=== PATIENT | female | born 1980 ===

== ENCOUNTER 2025-06-04 15:47 | Outpatient (AMB) | payer BC, SELFPAY | END 2025-06-05 13:30 | disposition home or self-care (01) | LOC: HO.HMGAL 15:47 | PROVIDERS: Visit Provider Registered Nurse Emergency | DX: J30.89 Other allergic rhinitis (principal) | CPT/HCPCS: 95117; 95165 ==

== ENCOUNTER 2025-06-27 15:24 | Outpatient (AMB) | payer BC, SELFPAY | END 2025-06-27 15:36 | disposition home or self-care (01) | LOC: HO.HMGAL 15:24 | PROVIDERS: Visit Provider Registered Nurse Emergency | DX: J30.89 Other allergic rhinitis (principal) | CPT/HCPCS: 95117; 95165 ==

== ENCOUNTER 2025-07-16 15:42 | Outpatient (AMB) | payer BC, SELFPAY | END 2025-07-16 15:42 | disposition home or self-care (01) | LOC: HO.HMGAL 15:42 | PROVIDERS: Visit Provider Registered Nurse Emergency | DX: J30.89 Other allergic rhinitis (principal) | CPT/HCPCS: 95117; 95165 ==

== ENCOUNTER 2025-08-01 15:44 | Outpatient (AMB) | payer BC, SELFPAY ==
--- OUTSIDE RECORDS SUMMARY | 2025-08-01 21:52 | XMS_ITS | Data Portability ---
Author Organization [place] [facility],, SHANI FARLEY MD Address [address] [address] Care Team Providers Care Poultry Veterinarian Name Role Phone ERICA FRANCOIS Primary Care Provider Assessment No assessment recorded. Plan of Treatment Reminders Order Date Submit Date Provider Last Modified By Organization Details Last Modified Time Details Appointments SPECIAL PROCEDURE 2024 01:00P M Shani Farley MD Not available Not available Not available Lab urinalysi s, dipstick 2024 025 [email or web address] 1 In-Office Order, Internal Use Only DO Not Attach Compendium DO Not Attach Compendium, Do Not Delete/merge, 07/05/2025 15:01:26 culture, urine 2024 025 [place] [place], [address] [place], [address], 07/07/2025 10:05:51 wet mount, vaginal 2024 025 [email or web address] 1 In-Office Order, Internal Use Only DO Not Attach Compendium DO Not Attach Compendium, Do Not Delete/merge, [id number] 07/05/2025 15:01:26 test, urine 2024 025 [email or web address] 1 In-Office Order, Internal Use Only DO Not Attach Compendium DO Not Attach Compendium, Do Not Delete/merge, 07/05/2025 15:01:26 urinalysi s, dipstick 2024 025 [email or web address] 1 In-Office Order, Internal Use Only DO Not Attach Compendium DO Not Attach Compendium, Do Not Delete/merge, [id number] 05/03/2025 13:23:35 culture, urine 2024 025 [facility], [address] [place], [address], 05/05/2025 10:05:43 test, urine 2024 025 [email or web address] 1 In-Office Order, Internal Use Only DO Not Attach Compendium DO Not Attach Compendium, Do Not Delete/merge, [id number] 05/03/2025 13:23:34 wet mount, vaginal 2024 025 [email or web address] 1 In-Office Order, Internal Use Only DO Not Attach Compendium DO Not Attach Compendium, Do Not Delete/merge, [id number] 05/03/2025 13:23:34 test, urine 2024 025 [email or web address] 1 In-Office Order, Internal Use Only DO Not Attach Compendium DO Not Attach Compendium, Do Not Delete/merge, [id number] 11/14/2024 15:35:05 cytology report, thin prep, smear or scraping, cervical or vaginal 2024 025 [facility]), Patient Can Go To The Location Of Their Choice, [id number] 10/19/2024 10:18:33 Referral None recorded. Procedures None recorded. Surgeries None recorded. Imaging US, pelvis, transabdo joseph + transvagi nal - postmenop ausal bleeding 2024 025 [facility], [address], [address], [place], [address], 07/06/2025 08:33:36 US, breast, bilateral , complete 2024 025 [facility], [address], [address], [place], [address], 02/07/2025 11:40:38 US, pelvis, transabdo joseph + transvagi nal - RLQ pain similar to prior ovarian cyst, for 3 weeks, negative test 2024 025 [facility] Orders, [address], [address], [place], [address], 11/25/2024 09:54:25 US, breast, bilateral , complete 2024 025 [facility] Orders, [address], [address], [place], [address], 05/10/2025 15:39:12 MAMMO, screening , digital, bilateral - Breast Aspiratio n and/or Biopsy if needed 2024 025 [facility] Orders, [address], [address], [place], [address], 10/16/2024 15:57:17 Medication Orders fluconazo le 150 mg tablet 2024 025 [facility]acy #[id number], [address] [place] [address], [address], 07/13/2025 05:01:54 nitrofura ntoin monohydra te/macroc rystals 100 mg capsule 2024 025 [facility] #[id number], [address] [place] [address], [id number], 05/18/2025 05:01:02 fluconazo le 150 mg tablet 2024 025 [facility] #[id number], [address] [place] [address], [id number], 07/13/2025 05:01:54 Radha 0.35 mg tablet 2024 025 [facility] #[id number], [address] [place] [address], [id number], 10/12/2024 15:36:16 Lo Loestrin Fe 1 mg-10 mcg (24)/10 mcg (2) tablet 2023 024 [email or web address]/Pharmacy #[id number], [address] [facility], [place], [address], 10/12/2024 15:16:17 Patient TargetsNo targets recorded. Patient Instructions Encounter Date Encounter Id Patient Instructions Last Modified By Organization Details Last Modified Time 05/30/2024 [id number] headache: care instructions Not available 05/30/2024 12:44:21 She is here because she had no menses from 10/02 until 02/01, then has had a menses every two to three weeks since then, has been having mood instability, increased anxiety, hot flashes and night sweats, and difficulty remembering things. She is age 43 but wonders if she is going though menopause. She has been using a progestin only pill since 09/02, because she was getting headaches on the 20 mcg pill she had francisco on. The headaches are nearly resolved off the 20 mcg pill, but these mood swings are intolerable, I'm afraid I will lose my job, and my said I need to do something about these moods. The issues of perimenopause were discussed at length. She is aware that her menses will become erratic, and she may miss menses more frequently. We discussed the possible symptoms of hot flashes, night sweats, insomnia, irritability, short term memory issues, and the possibility of developing anxiety or panic attacks. We reviewed why this occurs, on a physiologic basis, as her estrogen levels diminish. We discussed ways to diminish the symptoms, including avoidance of caffeine and alcohol, cooler temperature rooms, and wearing open and loose weave absorbent clothing, or nothing at all, at night. We touched on the social and life issues that can arise at this time due to the hormonal instability. We discussed ways to manage the symptoms with herbal therapy. The use of black cohash, specifically Remifemin, is discussed, and she is advised that she must take it twice a day for a month prior to trying to asses whether there is any benefit, as it takes a month to begin to notice improvement. We discussed trying the 10 mcg pill to see if her headaches do not recur on this, and see if the med can stabilize her mood instability, she will try this. Call if headaches return. All this started after stopping the 20 mcg pill so she may have bene well into the perimenopause nad not known it as the OCP may have masked the symptoms. Also she is taking zoloft from her PCP and is advised to call them and ask if they would be fine with her switching to prozac from zoloft, as this may help her hormonal mood instability as well. Face to face discussion for 35 minutes. [email or web address] Not available 05/30/2024 12:43:39 10/12/2024 [id number] learning about healthy weight Not available 10/12/2024 15:36:14 She is here for annual. She was switched to progestin pill last year due to her migraines. Since switching she notes her headaches are less frequent and less intense, she believes the switch made a good improvement. She was told by radiology that her breasts are dense and they recommend a mammogram once a year, and an ultrasound every year, offset by 6 months so she gets one test every 6 months. She had a right ovarian cyst last year but it shrank on repeat sono, and no further testing was necessary. Note from 2022: She is here for an annual however she has a few other concerns. She has had bloating and pelvic pain on and off for several weeks. She is worried she has ovarian cancer. She has Crohn's disease but feels these symptoms are different. She has dense breasts and would like a breast sonogram for screening. She has had worsening migraine headaches for the past few years, her PCP recently called her in Sumatriptan. she is taking a combination OCP. Her menses have bene coming in week 3 of her cycle and lasting a week then she goes into her next pill pack and again gets menses week 3. She appears to be doing well. Ordered breast ultrasound at her request. Monthly self breast exam was taught, and stressed, and is advised to call if she discovers any new mass in the breast. We reviewed the interaction of the OCP with antibiotics. We discussed the need to use a condom during antibiotic use and also for a minimum of three weeks following the use of antibiotics. We discused interactions with some herbal and OTC meds, such as [facility] Possible side effects, and the stated risk of one in 10,000 to develop a blood clot/ DVT/PE were also discussed. Safe sex was stressed. All questions answered, rx to be called in to pharmacy. Not available 10/12/2024 15:37:48 11/14/2024 [id number] She is here because on 10/19/24 she noted the onset of discomfort in her RLQ, like the cyst I had before, she had twinges of pain when she coughed or sneezed. The pain radiated to her low back. IT resolved 3 days ago nad is gone now but she is concerned because it was unusual. She would like a pelvic sonogram as the prior cyst showed up on sonogram. Note from 10/12/24: She is here for annual. She was switched to progestin pill last year due to her migraines. Since switching she notes her headaches are less frequent and less intense, she believes the switch made a good improvement. She was told by radiology that her breasts are dense and they recommend a mammogram once a year, and an ultrasound every year, offset by 6 months so she gets one test every 6 months. She had a right ovarian cyst last year but it shrank on repeat sono, and no further testing was necessary. ___ Ther is no mass on exam but she is guarding. Will chek pelvic sonogram. She is on progestin only pill because of headaches, which improved off the combination pill. We discussed that the combination pill can suppress cysts but if her headaches were worse on it then that could put her at risk for stroke. She understands. Check pelvic sonogram. Also she requests breast ultrasound for dense breasts. This is ordered. Face to face discussion, chart review and coordination of care: 25 minutes Not available 11/14/2024 15:39:31 05/03/2025 [id number] urinary tract infection in women information Not available 05/03/2025 13:23:35 vaginal yeast infection: care instructions Not available 05/03/2025 13:23:34 She is here for a two day history of worsening dysuria, frequency, urgency and vulvar pruritus. The pelvic sono in 12/05 was normal. Sh has vaginal yeast, rx diflucan. She appears ot also have a UTI, but could be contaminant from yeast. Will start macrobid and check urine culture. IF culture no growth can stop the antibiotic in 2 days. All questions answered. Not available 05/03/2025 13:33:23 07/05/2025 [id number] urinary tract infection in women information Not available 07/05/2025 15:01:26 vaginal yeast infection: care instructions Not available 07/05/2025 15:01:25 vaginal bleeding after sex: care instructions Not available 07/05/2025 15:15:44 She is here for a complaint of intermittent bloating, pelvic pain, which are relatively recent, and a history of 2 years of intermittent post coital spotting. She notes that she was switched to a generic med for her gi issues and after this the bloating issues and pain began. She talked to her gi doctor in [place] but was advised to see coloring room worker first as she could have a coloring room worker issue. She had a pelvic sonogram in 11/2024 that was normal, an the endometrial thickness was 1 mm. She has a famil history of ovarian cancer, but her mother is BRCA negative. Urine hcg is negative. Urine dip has blood and WBC but could be from vaginal yeast, check urine culture. Has symptomatic monilia vaginitis, rx diflucan. Abdominal pain, check pelvic sonogram. All qeustions answered. She is advised that in my opinion it is more likely that her bloating is gi in origin as it comes and goes and she should contact her gi doctor again to see if she can go back on the brand name as this did not cause the bloating. Face to face discussion, chart review and coordination of care: 25 minutes Not available 07/05/2025 15:14:27 Reason for Referral None Reported. Results Created Date Observation Date Name Description Value Unit Range Abnormal Flag Note LastModifiedBy Organization Detail LastModifiedTime 10/12/1910/19/2024 IGP, RFX APTIM A HPV ASCU diagnosis: Jose Antonio newton NEGAT HERMINIA FOR INTRA EPITH ELIAL LESVIVIEN N OR KARLY FAYE . THIS SPECI MEN WAS RESCR EENED PART OF OUR QUALI TY CONTR OL PROGR AM. Not Available [facility] ([facility]) [address] [place], [address], 10/19/2024 10:18:33 10/12/19 25 10/19/2024 IGP, RFX APTIM A HPV ASCU specimen adequacy: Jose Antonio newton Satis facto ry for evalu ation . Not Available [facility] ([facility]) [address] [place], [address], 10/19/2024 10:18:33 10/12/19 25 10/19/2024 IGP, RFX APTIM A HPV ASCU clinician provided ICD10: Jose Antonio newton Z01.4 19 Not Available [facility] ([facility]) [address] [place], [address], 10/19/2024 10:18:33 10/12/19 25 10/19/2024 IGP, RFX APTIM A HPV ASCU performed by: Jose Antonio Dunham, Cytot echno logis t (ASCP ) Not Available [facility] ([facility]) [address] [place], [address], 10/19/2024 10:18:33 10/12/19 25 10/19/2024 IGP, RFX APTIM A HPV ASCU QC reviewed by: Jose Antonio slater, Cytot echno logis t (ASCP ) Not Available [facility] ([facility]) [address] [place], [address], 10/19/2024 10:18:33 10/12/19 25 10/19/2024 IGP, RFX APTIM A HPV ASCU . . Not Available [facility] ([facility]) [address] [place], [address], 10/19/2024 10:18:33 10/12/19 25 10/19/2024 IGP, RFX APTIM A HPV ASCU note: Commen t The Pap smear is a scree giorgio test desig jed to aid in the detec tion of chad ligna nt and malig nant condi tions of the uteri ne cervi x. It is not a diagn ostic proce dure and shoul d not be used as the sole means of detec ting cervi yamilet cance r. Both false -posi tive and false -nega tive repor ts do occur . Not Available [facility] ([facility]) [address] [facility], [place], [address], 10/19/2024 10:18:33 10/12/19 25 10/19/2024 IGP, RFX APTIM A HPV ASCU test methodology: TNP The Thin Prep( R) Image r was unabl e to read this speci men. There fore a manua l revie w was perfo rmed. Not Available [facility] ([facility]) [address] [facility], [place], [address], 10/19/2024 10:18:33 10/12/19 25 10/19/2024 IGP, RFX APTIM A HPV ASCU . Commen t The HPV DNA refle x crite raysa were not met with this speci men resul t there fore, no HPV testi ng was perfo rmed. Not Available [facility] ([facility]) [address] [place], [address], 10/19/2024 10:18:33 11/14/19 25 11/14/2024 pregn nigel test, urine HCG negati ve Not Available In-Office Order Internal Use Only DO Not Attach Compendium DO Not Attach Compendium, Do Not Delete/merge, [id number] 11/14/2024 14:52:43 05/03/20 25 05/05/2025 URINE CULTU RE, ROUTI NE urine culture, routine Final report abnormal Not Available [facility] ([facility]) [address] [facility], [place], [address], 05/05/2025 14:05:49 05/03/20 25 05/05/2025 URINE CULTU RE, ROUTI NE result 1 COMMEN T abnormal Beta hemol ytic Strep tococ cus, group B 50,00 0-100 ,000 colon y formi ng units per mL Susce ptibi lity not jeanna lly perfo rmed on this organ ism. Penic illin and ampic illin are drugs of choic e for treat ment of beta- hemol ytic strep tococ yamilet infec tions . Susce ptibi lity testi ng of penic illin s and other beta- lacta m agent s appro elizabeth by the FDA for treat ment of beta- hemol ytic strep tococ yamilet infec tions need not be perfo rmed routi delta becau se nonsu scept ible isola chi are extre ariadna rare in any beta- hemol ytic strep tococ cus and have not been repor maxwell for Strep tococ cus pyoge nathan (grou p A). (CLSI ) Not Available [facility] ([facility]) [address] [facility], [place], [address], 05/05/2025 14:05:49 05/03/2005/03/2025 wet mount , vagin al Clue Cells negati ve Not Available In-Office Order Internal Use Only DO Not Attach Compendium DO Not Attach Compendium, Do Not Delete/merge, [id number] 05/03/2025 13:22:30 05/03/2005/03/2025 wet mount , vagin al Trichomonas negati ve Not Available In-Office Order Internal Use Only DO Not Attach Compendium DO Not Attach Compendium, Do Not Delete/merge, [id number] 05/03/2025 13:22:30 05/03/2005/03/2025 wet mount , vagin al Hyphae positi ve Not Available In-Office Order Internal Use Only DO Not Attach Compendium DO Not Attach Compendium, Do Not Delete/merge, 05/03/2025 13:22:30 05/03/2005/03/2025 wet mount , vagin al atrophic epithelium negati ve Not Available In-Office Order Internal Use Only DO Not Attach Compendium DO Not Attach Compendium, Do Not Delete/merge, 05/03/2025 13:22:30 05/03/2005/03/2025 pregn nigel test, urine HCG negati ve Not Available In-Office Order Internal Use Only DO Not Attach Compendium DO Not Attach Compendium, Do Not Delete/merge, 05/03/2025 13:17:25 05/03/2005/03/2025 urina lysis , dipst ick GLU Negati ve Not Available In-Office Order Internal Use Only DO Not Attach Compendium DO Not Attach Compendium, Do Not Delete/merge, 05/03/2025 13:16:37 05/03/2005/03/2025 urina lysis , dipst ick HIGINIO Negati ve Not Available In-Office Order Internal Use Only DO Not Attach Compendium DO Not Attach Compendium, Do Not Delete/merge, 05/03/2025 13:16:37 05/03/2005/03/2025 urina lysis , dipst ick KET Negati ve Not Available In-Office Order Internal Use Only DO Not Attach Compendium DO Not Attach Compendium, Do Not Delete/merge, 05/03/2025 13:16:37 05/03/2005/03/2025 urina lysis , dipst ick SG 1.010 Not Available In-Office Order Internal Use Only DO Not Attach Compendium DO Not Attach Compendium, Do Not Delete/merge, 05/03/2025 13:16:37 05/03/2005/03/2025 urina lysis , dipst ick BLO Large Not Available In-Office Order Internal Use Only DO Not Attach Compendium DO Not Attach Compendium, Do Not Delete/merge, 05/03/2025 13:16:37 05/03/20 25 05/03/2025 urina lysis , dipst ick pH 6.5 Not Available In-Office Order Internal Use Only DO Not Attach Compendium DO Not Attach Compendium, Do Not Delete/merge, [facility] 05/03/2025 13:16:37 05/03/20 25 05/03/2025 urina lysis , dipst ick PRO 30 Not Available In-Office Order Internal Use Only DO Not Attach Compendium DO Not Attach Compendium, Do Not Delete/merge, [facility] 05/03/2025 13:16:37 05/03/20 25 05/03/2025 urina lysis , dipst ick URO 0.2 E.U. / dl Not Available In-Office Order Internal Use Only DO Not Attach Compendium DO Not Attach Compendium, Do Not Delete/merge, [facility] 05/03/2025 13:16:37 05/03/20 25 05/03/2025 urina lysis , dipst ick NIT negati ve Not Available In-Office Order Internal Use Only DO Not Attach Compendium DO Not Attach Compendium, Do Not Delete/merge, [facility] 05/03/2025 13:16:37 05/03/20 25 05/03/2025 urina lysis , dipst ick FREDERICK Large Not Available In-Office Order Internal Use Only DO Not Attach Compendium DO Not Attach Compendium, Do Not Delete/merge, [facility] 05/03/2025 13:16:37 05/25/20 25 05/26/2025 URINE CULTU REMARGARET NE urine culture, routine Final report abnormal Not Available [facility] ([facility]) [address] [facility], [place], [address], 05/26/2025 18:05:38 05/25/20 25 05/26/2025 URINE CULTU REMARGARET NE result 1 COMMEN T abnormal Beta hemol ytic Strep tococ cus, group B 50,00 0-100 ,000 colon y formi ng units per mL Penic illin and ampic illin are drugs of choi e for treat ment of beta- hemol ytic strep tococ yamilet infec tions . Susce ptibi lity testi ng of penic illin s and other beta- lacta m agent s appro elizabeth by the FDA for treat ment of beta- hemol ytic strep tococ yamilet infec tions need not be perfo rmed margaret hebertau se nonsu scept ible isola chi are extre ariadna rare in any beta- hemol ytic strep tococ cus and have not been repor maxwell for Strep tococ cus pyoge nathan (grou p A). (CLSI ) Not Available [facility] ([facility]) [address] [facility], [place], [address], 05/26/2025 18:05:38 07/05/2007/07/2025 URINE CULTU REMARGARET NE urine culture, routine Final report Not Available [facility] ([facility]) [address] [facility], [place], [address], 07/07/2025 10:05:51 07/05/2007/07/2025 URINE CULTU REMARGARET result 1 No growth Not Available [facility] ([facility]) [address] [facility], [place], [address], 07/07/2025 10:05:51 07/05/2007/05/2025 wet mount , vagin al Clue Cells negati ve Not Available In-Office Order Internal Use Only DO Not Attach Compendium DO Not Attach Compendium, Do Not Delete/merge, 07/05/2025 15:00:34 07/05/2007/05/2025 wet mount , vagin al Trichomonas negati ve Not Available In-Office Order Internal Use Only DO Not Attach Compendium DO Not Attach Compendium, Do Not Delete/merge, 07/05/2025 15:00:34 07/05/2007/05/2025 wet mount , vagin al Hyphae positi ve Not Available In-Office Order Internal Use Only DO Not Attach Compendium DO Not Attach Compendium, Do Not Delete/merge, 07/05/2025 15:00:34 07/05/2007/05/2025 wet mount , vagin al atrophic epithelium negati ve Not Available In-Office Order Internal Use Only DO Not Attach Compendium DO Not Attach Compendium, Do Not Delete/merge, 07/05/2025 15:00:34 07/05/2007/05/2025 pregn nigel test, urine HCG negati ve Not Available In-Office Order Internal Use Only DO Not Attach Compendium DO Not Attach Compendium, Do Not Delete/merge, 07/05/2025 14:58:13 07/05/2007/05/2025 urina lysis , dipst ick GLU Negati ve Not Available In-Office Order Internal Use Only DO Not Attach Compendium DO Not Attach Compendium, Do Not Delete/merge, 07/05/2025 14:55:04 07/05/2007/05/2025 urina lysis , dipst ick HIGINIO Negati ve Not Available In-Office Order Internal Use Only DO Not Attach Compendium DO Not Attach Compendium, Do Not Delete/merge, 07/05/2025 14:55:04 07/05/2007/05/2025 urina lysis , dipst ick KET Negati ve Not Available In-Office Order Internal Use Only DO Not Attach Compendium DO Not Attach Compendium, Do Not Delete/merge, 07/05/2025 14:55:04 07/05/2007/05/2025 urina lysis , dipst ick SG 1.005 Not Available In-Office Order Internal Use Only DO Not Attach Compendium DO Not Attach Compendium, Do Not Delete/merge, 07/05/2025 14:55:04 07/05/2007/05/2025 urina lysis , dipst ick BLO Hemoly zed : Trace Not Available In-Office Order Internal Use Only DO Not Attach Compendium DO Not Attach Compendium, Do Not Delete/merge, 07/05/2025 14:55:04 07/05/2007/05/2025 urina lysis , dipst ick pH 6.0 Not Available In-Office Order Internal Use Only DO Not Attach Compendium DO Not Attach Compendium, Do Not Delete/merge, 2025 14:55:04 07/05/20 25 07/05/2025 urina lysis , dipst ick PRO Negati ve Not Available In-Office Order Internal Use Only DO Not Attach Compendium DO Not Attach Compendium, Do Not Delete/merge, [facility] 07/05/2025 14:55:04 07/05/20 25 07/05/2025 urina lysis , dipst ick URO 0.2 E.U. / dl Not Available In-Office Order Internal Use Only DO Not Attach Compendium DO Not Attach Compendium, Do Not Delete/merge, [id number] 07/05/2025 14:55:04 07/05/2007/05/2025 urina lysis , dipst ick NIT negati ve Not Available In-Office Order Internal Use Only DO Not Attach Compendium DO Not Attach Compendium, Do Not Delete/merge, [facility] 07/05/2025 14:55:04 07/05/2007/05/2025 urina lysis , dipst ick FREDERICK Large Not Available In-Office Order Internal Use Only DO Not Attach Compendium DO Not Attach Compendium, Do Not Delete/merge, [facility] 07/05/2025 14:55:04 08/13/20 24 08/11/2024 MAMMO , scree giorgio, digit al, bilat eral No observ ation record ed. [facility] [address], [place], [address], 08/14/2024 07:09:21 11/25/19 25 11/24/2024 US, pelvi s, trans abdom inal + trans vagin al No observ ation record ed. [facility] (Imaging) [address], [place], [address], 11/27/2024 16:54:58 05/10/20 25 05/10/2025 US, breas t, bilat eral, compl ete No observ ation record ed. [facility] [address] [address] [address], [place], [address], 05/11/2025 07:39:26 07/10/20 25 07/09/2025 US, pelvi s, trans abdom inal + trans vagin al No observ ation record ed. [email or web address] [facility] [address], [place], [address], 07/30/2025 15:23:14 Result Notes None recorded. Problems Name Problem SNOMED Code Status Onset Date Resolution Date Notes Provider Name and Address Organization Details Recorded Time Ulcerative colitis 49179514 Active 2017 ARGELIA Villar in [facility], 8 15:04:17 Celiac disease 810707377 Active 2017 ARGELIA Villar in [facility], 8 15:12:57 Endometrios is of uterus 84144280 Active 2017 [place], [address], [place] [facility], 8 16:01:35 Dyspareunia 85007400 Active 2017 MD Thee Dyson SU ITAditi Ferraro, [place], [address], [place] - [facility], 8 16:01:44 Premenstrua l dysphoric disorder 261073 Active 2018 improved with the OCP MD Thee Dyson SU ITAditi Ferraro, [place], [address], [place] [facility], 9 15:48:40 Family history of malignant neoplasm of ovary 436603915 Active 2023 MD Thee Dyson [address], [place], [address], [place] [facility], 4 11:46:26 Family history of malignant neoplasm of breast in first degree relative 593863283 Active 2023 MD Thee Dyson [address], [place], [address], [place] [facility], 4 11:46:40 Extremely dense breast composition 073337449 Active 2024 Shani Farley MD [address], [place], [address], [place] [facility], 5 15:35:54 Problem Notes None recorded. Procedures Surgical History Date Name Laterality Status Provider Name and Address Organization Details Recorded Time 4 Most Recent Mammogram completed Kassy Newman in [facility], 09/26/2024 10:39:28 2 Colposcopy completed Shani Farley MD [address], [place], [address], [place] [facility], 05/11/2022 10:35:45 2 Colposcopy completed Shani Farley MD [address], [place], [address], [place] - [facility], 01/22/2022 14:57:37 9 Hernia repair w/mesh completed Shani Farley MD [address], [place], [address], [place] - [facility], 03/13/2020 10:18:36 5 Caesarean Section completed Letitia Newman in [facility], 02/10/2018 15:18:48 Other completed Letitia Newman in [facility], 02/10/2018 15:20:47 Imaging Results None recorded. Procedure Notes None recorded. Medical Equipment None Reported. Allergies Allergen ID Allergen Name Allergen Category Reaction Reaction Severity Criticality Documentation Date Start Date Code Code System Note Provider Name and Address Organization Details Recorded Time Augmentin medicatio n rash Not available Not available 02/10/2018 95602 2 RxNorm ARGELIA Villar in [facility], 8 15:06:01 clindamyc in Not available rash Not available Not available 02/10/2018 2582 RxNorm Letitia Winters monie [place] - [facility], 8 15:06:20 [address]54 Remicade medicatio n anaphylax is severe high 08/20/2022 07591 0 RxNorm Tigist Goss ARGELIA lomax - [facility], 2 15:15:47 Medications Name Sig Start Date Stop Date Status Note LastModified by Organization Details LastModified Time prednisone 10 mg tablet TAKE 4 TABLETS BY MOUTH EVERY DAY 05/11 completed Not Available Not Available Not Available trazodone 50 mg tablet 08/19 completed Not Available Not Available Not Available azithromyc in 250 mg tablet TAKE 2 TABLETS BY MOUTH TODAY, THEN TAKE 1 TABLET DAILY FOR 4 DAYS DIRECTED STARTING TODAY 10/12 completed Not Available Not Available Not Available fluconazol e 150 mg tablet Take 1 tablet every day by oral route for 1 day. 07/13 completed Not Available Not Available Not Available ondansetro n HCl 4 mg tablet TAKE 1 TABLET BY MOUTH EVERY 8 HOURS FOR 7 DAYS 09/09 completed Not Available Not Available Not Available sertraline 100 mg tablet TAKE 1 & 1/2 TABLETS BY MOUTH DAILY active Not Available Not Available No t Available prednisone 5 mg tablet TAKE 1 TABLET BY MOUTH ONCE A DAY. TITRATE DIRECTED . 05/11 completed Not Available Not Available Not Available sumatripta n 50 mg tablet TAKE 1 TABLET BY MOUTH ONVR A DAY. MAY REPEAT DOSE IN 2 HOURS IF NEEDED active Not Available Not Available No t Available promethazi ne 6.25 mg-codeine 10 mg/5 mL syrup TAKE 5 MLS BY MOUTH AT BEDTIME NEEDED FOR COUGH FOR 7 DAYS. 03/13 completed Not Available Not Available Not Available Remicade 100 mg intravenou s solution Inject by intraven ous route. 08/20 completed Not Available Not Available Not Available vancomycin 125 mg capsule TAKE ONE CAPSULE BY MOUTH 4 TIMES A DAY 02/16 completed Not Available Not Available Not Available benzonatat e 100 mg capsule TAKE 1 CAPSULE BY MOUTH THREE TIMES A DAY FOR 7 DAYS NEEDED FOR COUGH 08/20 /2024 completed Not Available Not Available Not Available prednisone 50 mg tablet TAKE 1 TABLET BY MOUTH DAILY FOR 4 DAYS. TAKE WITH FOOD OR MILK. 09/09 completed as needed Not Available Not Available Not Available polymyxin B sulfate 10,000 unit-trime thoprim 1 mg/mL eye drops INSTILL 1 DROP IN LEFT EYE 3 TIMES A DAY FOR 7 DAYS 09/09 completed Not Available Not Available Not Available hydrocorti sone 100 mg/60 mL enema INSERT ONE ENEMA RECTALLY AT BEDTIME 12/09 completed Not Available Not Available Not Available montelukas t 10 mg tablet TAKE 1 TABLET BY MOUTH ONCE DAILY active Not Available Not Available No t Available epinephrin e 0.3 mg/0.3 mL injection, auto-injec tor INJECT 1 PEN INTRAMUS CULARLY ONCE DIRECTED active Not Available Not Available No t Available levofloxac in 750 mg tablet TAKE 1 TABLET BY MOUTH EVERY DAY FOR 7 DAYS 03/13 completed Not Available Not Available Not Available methylpred nisolone 4 mg tablets in a dose pack TAKE DIRECTED 09/09 completed Not Available Not Available Not Available albuterol sulfate HFA 90 mcg/actuat ion aerosol inhaler INHALE 2 PUFFS EVERY 4 HOURS NEEDED FOR COUGH, WHEEZE OR SHORTNES S OF BREATH . 05/30 completed Not Available Not Available Not Available ipratropiu m bromide 42 mcg (0.06 %) nasal spray USE 2 SPRAYS IN NASALLY 3 TIMES A DAY FOR 5 DAYS 03/13 completed Not Available Not Available Not Available norethindr one (contracep tive) 0.35 mg tablet TAKE 1 TABLET BY MOUTH EVERY DAY active Not Available Not Available No t Available fluticason e propionate 50 mcg/actuat ion nasal spray,susp ension USE 1 SPRAY IN EACH NOSTRIL TWICE A DAY active Not Available Not Available No t Available sertraline 50 mg tablet TAKE THREE TABLETS BY MOUTH EVERY DAY 08/19 completed Not Available Not Available Not Available oxycodone 5 mg tablet TAKE 1 TABLET BY MOUTH EVERY 4 HOURS NEEDED FOR PAIN 10/12 completed Not Available Not Available Not Available Bactrim DS 800 mg-160 mg tablet Take 1 tablet every 12 hours by oral route for 5 days. 06/09 completed Not Available Not Available Not Available nitrofuran toin monohydrat e/macrocry stals 100 mg capsule Take 1 capsule every 12 hours by oral route for 7 days. 05/18 completed Not Available Not Available Not Available mesalamine 1,000 mg rectal suppositor y 1 SUPPOSIT ORY RECTALLY ONCE AT NIGHT 09/09 completed Not Available Not Available Not Available Humira active Not Available Not Availa ble Not Available Sronyx 0.1 mg-20 mcg tablet TAKE 1 TABLET BY MOUTH EVERY DAY 05/30 completed Not Available Not Available Not Available Bacitrayci n Plus 500 unit/gram topical ointment APPLY TOPICALL Y TO AFFECTED SKIN 2 TIMES A DAY FOR 7 DAYS active Not Available Not Available No t Available mesalamine 800 mg tablet,del ayed release TAKE TWO TABLETS BY MOUTH THREE TIMES DAILY 12/09 completed Not Available Not Available Not Available Zyrtec 10 mg capsule Take by oral route. active Not Available Not Available No t Available Lo Loestrin Fe 1 mg-10 mcg (24)/10 mcg (2) tablet TAKE 1 TABLET BY MOUTH EVERY DAY FOR 84 DAYS 10/12 completed Not Available Not Available Not Available Banophen 50 mg capsule TAKE 1 CAPSULE BY MOUTH EVERY 4 TO 6 HOURS NEEDED FOR ALLERGIC REACTION 09/09 completed Not Available Not Available Not Available Prepopik 10 mg-3.5 gram-12 gram oral powder packet USE DIRECTED 08/15 completed Not Available Not Available Not Available budesonide DR-ER 9 mg tablet,del ayed and extended release TAKE 1 TABLET BY MOUTH EVERY DAY 12/09 completed Not Available Not Available Not Available Delzicol 400 mg capsule (DR tablets inside) TAKE THREE CAPSULES BY MOUTH FOUR TIMES DAILY 08/19 completed Not Available Not Available Not Available riboflavin (vitamin B2) 400 mg tablet TAKE 1 TABLET BY MOUTH EVERY DAY active Not Available Not Available No t Available Clenpiq 10 mg-3.5 gram-12 gram/160 mL oral solution DIRECTED 08/15 completed Not Available Not Available Not Available Flucelvax Quad 5373-8106 (PF) 60 mcg (15 mcg x 4)/0.5 mL IM syringe TO BE ADMINIST ERED BY PHARMACI ST FOR IMMUNIZA TION active Not Available Not Available No t Available Sutab 1.479-0.18 8-0.225 gram tablet DIRECTED BY CLINIC INSTRUCT IONS WITH WATER (12 TABLETS DAY BEFORE APPT, 12 TABLETS DAY OF) 05/03 completed Not Available Not Available Not Available Paxlovid 300 mg (150 mg x 2)-100 mg tablets in a dose pack TAKE 3 TABLETS BY MOUTH TWICE A DAY FOR 5 DAYS DIRECTED ON PACKAGE active Not Available Not Available No t Available Vitals Date Recorded Body height Body mass index (BMI) Body weight Body temperature Heart rate Systolic And Diastolic Provider Name and Address Organization Details Last Updated DateTime 149.86 cm 25.7 kg/m2 99718.2 3 g 97.4 [degF] 69 /min 128/80 mm[Hg] Kassy Newman in [facility], 15:14:48 Date Recorded Body height Body mass index (BMI) Body weight Heart rate Systolic And Diastolic Provider Name and Address Organization Details Last Updated DateTime 11/14/2024 149.86 cm 26.3 kg/m2 14748.01 g 62 /min 131/74 mm[Hg] Kassy Newman in [facility], 11/14/2024 14:52:12 Date Recorded Body height Body mass index (BMI) Body weight Heart rate Systolic And Diastolic Provider Name and Address Organization Details Last Updated DateTime 05/03/2025 149.86 cm 26.9 kg/m2 69199.79 g 79 /min 118/74 mm[Hg] Kassy Newman in [facility], 05/03/2025 13:04:37 Date Recorded Body height Body mass index (BMI) Body weight Body temperature Heart rate Systolic And Diastolic Provider Name and Address Organization Details Last Updated DateTime 149.86 cm 25.2 kg/m2 04854.0 5 g 97.2 [degF] 79 /min 129/70 mm[Hg] Kassy Newman in [facility], 10:48:26 Date Recorded Body height Body mass index (BMI) Body weight Heart rate Systolic And Diastolic Provider Name and Address Organization Details Last Updated DateTime 07/05/2025 149.86 cm 27.8 kg/m2 89556.59 g 69 /min 146/84 mm[Hg] Kassy Obinna [place] - [facility], 07/05/2025 14:43:15 Social History Question Answer Notes LastModified by Organizat ion Details LastModified Time Tobacco Smoking Status Never Smoker Not Available [facility] 08/13/2020 03:19:43 How Many Years Have You Consumed Alcohol? 20 Information not available 08/19/2021 What Is Your Level Of Caffeine Consumption? Heavy Information not available 08/15/2020 In The 14 Days Before Symptom Onset, Have You Had Close Contact With A Laboratory-confir med COVID-19 While That Case Was Ill? No Information not available 08/19/2021 In The 14 Days Before Symptom Onset, Have You Had Close Contact With A Person Who Is Under Investigation For COVID-19 While That Person Was Ill? No Information not available 08/19/2021 Have You Been To An Area Known To Be High Risk For COVID-19? No Information not available 08/19/2021 What Type Of Diet Are You Following? GLUTENFREE [id number] Information not available 08/13/2020 Which Illicit Or Recreational Drugs Have You Used? None [id number] Information not available 08/13/2020 Do You Reside In Or Have You Traveled To An Area Where Ebola Virus Transmission Is Active? No [id number] Information not available 08/13/2020 Education Post Graduate Information not available 02/10/2018 What Is The Highest Grade Or Level Of School You Have Completed Or The Highest Degree You Have Received? [id number] Information not available 08/19/2021 Who Is Your Employer? [employer] Information not available 05/11/2022 How Many Days In The Past Year Have You Had A Heavy Drinking Consumption (4+ Female, 5+ Male)? 0 Information no t available 02/10/2018 Are There Any Guns Present In Your Home? Yes Information not available 08/19/2021 High Number Of Sexual Partners No Information not available 02/10/2018 To Which Gender Do You Self-identify? Female Information not available 02/10/2018 Marital Status stacey Informmaryo n not available 02/10/2018 What Was The Date Of Your Most Recent Tobacco Screening? 07/05/2025 Information not available 07/05/2025 What Is Your Relationship Status? Information not available 08/19/2021 Are You Sexually Active? Yes [id number] Information not available 08/13/2020 How Much Tobacco Do You Smoke? No [id number] Information not available 08/13/2020 General Stress Level Medium Information not available 02/16/2019 How Many Years Have You Smoked Tobacco? 0 [id number] Information not available 08/13/2020 Have You Recently (within The Last 12 Weeks, Or During A Current ) Traveled To Or Lived In A Zika-affected Area? No Information not available 02/10/2018 How Many Days In The Past Year Have You Consumed 4 Or More Drinks? 0 Information no t available 08/19/2021 Sex: Female Functional Status Question Answer Note LastModified by Organizat ion Details LastModified Time Do you use any illicit or recreational drugs? No Information not available 08/19/2021 Do you or have you ever used any other forms of tobacco or nicotine? No Information not available 12/09/2021 What is your level of alcohol consumption? Occasional [id number] Information not available 08/13/2020 Do you or have you ever used smokeless tobacco? Never used smokeless tobacco [id number] Information not available 08/13/2020 Are you currently employed? Yes Information not available 08/19/2021 What is your occupation? teacher Information not available 05/11/2022 Do you or have you ever used e-cigarettes or vape? Never used electronic cigarettes [id number] Information not available 08/13/2020 What is your exercise level? Heavy Information not available 09/09/2023 Mental Status Question Answer Note LastModified by Organization D etails LastModified Time Do you feel stressed (tense, restless, nervous, or anxious, or unable to sleep at night)? [id number] Information not available 08/19/2021 Family History Relationship Description Onset Age of this Age Resolved Age Notes LastModified by Organization Details LastModified Time Mother History of endometriosi s stacey Not available 2017 15:13:45 Father Hypercholest erolemluca ibarra Not available 2017 15:14:52 Maternal Aunt Malignant neoplasm of breast 52 [email or web address] Not available 2021 10:25:19 Maternal Aunt Problem 8 brain . [email or web address] Not available 10/25/2023 11:13:22 Maternal Grandmother Malignant neoplasm of ovary 58 [email or web address] Not available 2023 10:35:17 Maternal Grandmother Malignant neoplasm of uterus 51 [email or web address] Not available 2023 11:12:55 Maternal Grandfather Problem 28 31 aggres sive testic ular. [email or web address] Not available 10/25/2023 10:35:58 Paternal Grandfather Problem prosta te. [email or web address] Not available 10/25/2023 10:36:20 Maternal Uncle Problem 57 prosta te Not available 10/25/2023 11:43:24 Medical History Condition Response Anesthesia complications N High Blood Pressure N Candidate for MyRisk panel N Autoimmune Condition Y Thyroid Problems N Kidney or Bladder Problems N Depression Y GI Problems Y Lung Disease N Defects or Inherited Disease N Anemia N History of Ovarian Cancer N History of Breast Cancer N JULIET exposure N BRCA testing in past N Osteopenia N Psychiatric Illness N Diabetes N Anxiety Disorder N Arthritis N Headaches or Migraines Y Infertility N Asthma N History of Cancer N Endometriosis N Hepatitis N Heart Disease Y Hypertension N Osteoporosis N Gynecological History Statement/Question Response Flow Moderate Date of LMP 06/25/2025 Frequency of Cycle (Q days) 14 Menses Monthly Y Duration of Flow (days) 5 Age at Menarche 12 Current Control Method BCPs Most Recent Mammogram 08/11/2024 Age at First Child 37 Obstetrics History GPAL:G 1 P 1 0 0 1 Type Value Full Term 1 Living 1 Total 1 Immunizations Vaccine Type Date Status Note Provider Eitan gorman and Address Organization Details Recorded Time influenza, unspecified formulation 7 completed Letitia lomax [place] - [facility], 02/10/2018 15:12:39 influenza, unspecified formulation 8 completed Not Available [facility] 10/25/2023 10:22:28 Influenza, split virus, quadrivalent, preservative 9 completed Not Available [facility] 10/25/2023 10:22:28 Influenza, split virus, quadrivalent, preservative 0 completed Kassy lomax MA Erica [facility], 08/15/2020 15:19:04 Influenza, split virus, quadrivalent, preservative 1 completed Not Available [facility] 10/25/2023 10:22:28 COVID-19, mRNA, LNP-S, PF, 100 mcg/0.5mL dose or 50 mcg/0.25mL dose 1 completed Not Available [facility] 10/25/2023 10:22:28 Influenza, MDCK, quadrivalent, PF 8 completed Tigist lomax [place] [facility], 09/09/2023 15:23:37 Influenza, MDCK, quadrivalent, PF 1 completed Tigist lomax [place] - [facility], 09/09/2023 15:23:37 COVID-19, mRNA, LNP-S, PF, 100 mcg/0.5mL dose or 50 mcg/0.25mL dose 1 completed Tigist lomax [place] - [facility], 09/09/2023 15:23:37 COVID-19, mRNA, LNP-S, PF, 100 mcg/0.5mL dose or 50 mcg/0.25mL dose 1 completed Tigist lomax [place] - [facility], 09/09/2023 15:23:37 COVID-19, mRNA, LNP-S, PF, 100 mcg/0.5mL dose or 50 mcg/0.25mL dose 1 completed Tigist lomax [place] - [facility], 09/09/2023 15:23:37 influenza, unspecified formulation 1 completed Tigist lomax [place] - [facility], 09/09/2023 15:23:38 Influenza, split virus, quadrivalent, PF 9 completed Tigist lomax [place] [facility], 09/09/2023 15:23:38 Influenza, split virus, quadrivalent, PF 2 completed Tigist lomax [place] [facility], 09/09/2023 15:23:38 Influenza, MDCK, quadrivalent, PF 3 completed Kassy Yeboah monie [place] - [facility], 10/22/2023 11:03:29 Tdap 4 completed Not Available [facility] 07/05/2025 14:40:32 Influenza, split virus, trivalent, PF 4 completed Not Available [facility] 07/05/2025 14:40:32 Past Encounters Encounter ID Performer Location Encounter Start Date Encounter Closed Date Diagnosis/Indication Diagnosis SNOMED-CT Code Diagnosis ICD10 Code Diagnosis IMO Codes Diagnosis Note [id number] MD SHANI Dyson MD [address] [place] [address],[address] [place] [address] 02/10/2018 14:49:54 02/10/2018 16:06:25 Dysmenorrhea 044575003 N94.6 Endometrio sis of uterus 49942914 N80.0 Dyspareunia 81260269 N94 .10 [id number] MD SHANI Dyson MD [address] [place] [address],[address] [place] [address] 07/25/2018 14:22:13 07/25/2018 15:57:23 Specialized medical examination 37187320 Z01.419 Venereal d isease screening 976942051 Z11.3 [id number] MD SHANI Dyson MD [address] [place] [address],[address] [place] [address] 08/08/2018 15:40:06 08/09/2018 15:56:03 Candidal vulvovaginitis 53456920 B37.3 [id number] MD SHANI DysonAN MD [address] [place] [address], [place] [address] 02/16/2019 15:11:35 02/17/2019 13:17:56 Pain in pelvis 98396436 R10.2 Premenstru al dysphoric disorder 705655 F32.81 Dyspareunia 85128669 N94 .10 Celiac disease 817584529 K90.0 Ulcerative colitis 49061 004 K51.80 [id number] MD SHANI Dyson MD [address] [place] [address],[facility] [address] 06/28/2019 10:26:20 06/28/2019 12:00:11 Dysmenorrhea 017226524 N94.4 Screening mammography 24 707139 Z12.31 Night sweats 63741507 R6 1 [id number] MD SHANI Dyson MD [address] [place] [address] [place] [address] 07/25/2019 10:10:34 07/25/2019 11:22:45 Specialized medical examination 51863439 Z01.419 Screening mammography 24 323278 Z12.31 [id number] MD SHANI Dyson MD [address] [place] [address] [place] [address] 03/13/2020 09:10:38 03/13/2020 10:56:34 Amenorrhea 88839340 N91.2 Fatigue 78379117 R53.83 [id number] MD SHANI Dyson MD [address] [place], [place] [address] [address] 08/15/2020 15:11:57 08/15/2020 16:02:53 Specialized medical examination 34134377 Z01.419 Screening mammography 24 361914 Z12.31 [id number] MD SHANI Dyson MD [address] [place] [address], [place] [address] 08/19/2021 14:43:30 08/19/2021 15:35:59 Specialized medical examination 69204128 Z01.419 Screening mammography 24 267809 Z12.31 Endometrio sis of uterus 00946031 N80.0 Dyspareunia 06768840 N94 .10 [id number] MD SHANI Dyson MD [address] [place] [address] [place] [address] 12/09/2021 15:12:56 12/09/2021 16:08:45 Atypical squamous cells of undetermined significance on cervical Papanicolaou smear 796031182 R87.610 Ulcerative colitis 71665 004 K51.80 Surveillan ce of oral contraception 949158582 Z30.41 [id number] MD SHANI Dyson MD [address] [place] [address] [place] [address] 01/22/2022 14:35:30 09/18/2022 09:57:44 Cytologic finding 693227342 R87.612 Low grade squamous intraepithelial lesion on cervical Papanicolaou smear 2345804901 9105 R87.612 [id number] MD SHANI Dyson MD [address] [place] [address] [place] [facility] [place] [address] 05/11/2022 09:57:52 05/11/2022 10:52:05 Low grade squamous intraepithelial lesion on cervical Papanicolaou smear 0276432689 9105 R87.612 Cytologic finding 977856 006 R87.612 [id number] MD SHANI Dyson MD [address] [place] [address] [place] [address] 08/20/2022 15:12:25 08/20/2022 15:56:44 Specialized medical examination 44183552 Z01.419 Screening mammography 24 922957 Z12.31 Extremely dense breast composition 239686084 R92.2 [id number] MD SHANI Dyson MD [address] [place] [address] [place] [facility] [place] [address] 09/09/2023 15:19:22 09/09/2023 16:01:09 Specialized medical examination 82355113 Z01.419 Screening for malignant neoplasm of rectum 244046151 Z12.12 Screening mammography 24 667287 Z12.31 Extremely dense breast composition 307920910 R92.2 Pain in pelvis 67751509 R10.2 [id number] MD SHANI Dyson MD [address] [place] [address] [place] [address] 10/22/2023 10:55:50 10/22/2023 14:22:52 Complex cyst of right ovary 9076452076 9436565 N83.291 Abdominal bloating 53083 9008 R14.0 [id number] MD SHANI Dyson MD [address] [place] [address] [place] [address] 10/25/2023 10:21:47 10/25/2023 14:11:45 Complex cyst of right ovary 3793796499 1888694 N83.291 Amenorrhea 37368978 N91. 2 Family his tory of malignant neoplasm of breast in first degree relative 774400989 Z80.3 Family his tory of malignant neoplasm of ovary 946214422 Z80.41 [id number] MD SHANI Dyson MD [address] [place] [address] [place] [address] 05/30/2024 10:43:10 05/30/2024 15:05:27 Menopausal syndrome 304442690 N95.9 Surveillan ce of oral contraception 789239673 Z30.41 Headache 48979125 R51.9 Premature ovarian failure 315040223 E28.39 [id number] MD SHANI Dyson MD [address] [place] [address] [place] [address] 10/12/2024 15:09:46 10/16/2024 15:57:17 Specialized medical examination [id number] Z01.419 Screening for malignant neoplasm of rectum [id number] Z12.12 Screening mammography 24 [id number] Z12.31 Extremely dense breast composition [id number] R92.2 [id number] MD SHANI Dyson MD [address] [place], [place] [address] [address] 11/14/2024 14:45:42 11/14/2024 15:59:14 Pain in pelvis [id number] R10.2 Extremely dense breast composition [id number] R92.2 [id number] MD SHANI Dyson MD [address] [facility] [place] [id number] 05/03/2025 12:59:16 05/03/2025 13:46:18 Acute lower urinary tract infection [id number] R30.0 Candidal vulvovaginitis [id number] B37.31 [id number] MD SHANI Dyson MD [address] [facility] [place] [address] 07/05/2025 14:38:50 07/05/2025 15:28:48 Acute lower urinary tract infection [id number] R30.0 Candidal vulvovaginitis 20667411 B37.31 Pain in pelvis 57924614 R10.2 18449 Postcoital bleeding 4888 0000 N93.0 938413 Family his tory of malignant neoplasm of ovary [id number] Z80.41 Health Concerns Section Related Observation LastModified by Organization Detai ls LastModified Time None Recorded Concern Status LastModified by Organization Details LastModified Time None Recorded Advance Directives Directive None Recorded Payers Insurance Date Sequence Insurance Name Policy Number Policy Koch Covered Member ID Koch Member ID Guarantor Name 10/22/2023 1 [place] [facility] (O) [id number] Anna Samaniego [id number] Anna Samaniego 07/05/2025 1 [place]) [id number] Cj Luis [id number] Anna Samaniego Notes Date Note Type Note Provider Name and Address Organization Details Recorded Time 05/30/2024 text/html She is here because she had no menses from 10/02 until 02/01, then has had a menses every two to three weeks since then, has been having mood instability, increased anxiety, hot flashes and night sweats, and difficulty remembering things. She is age 43 but wonders if she is going though menopause. She has been using a progestin only pill since 09/02, because she was getting headaches on the 20 mcg pill she had francisco on. The headaches are nearly resolved off the 20 mcg pill, but these mood swings are intolerable, I'm afraid I will lose my job, and my said I need to do something about these moods. Shani Farley MD [address], [place], [address], [place] - [facility], 05/30/2024 12:44:39 10/12/2024 text/html She is here for annual. She was switched to progestin pill last year due to her migraines.Since switching she notes her headaches are less frequent and less intense, she believes the switch made a good improvement. She was told by radiology that her breasts are dense and they recommend a mammogram once a year, and an ultrasound every year, offset by 6 months so she gets one test every 6 months. Note from 2022: She is here for an annual however she has a few other concerns.She has had bloating and pelvic pain on and off for several weeks. She is worried she has ovarian cancer. She has Crohn's disease but feels these symptoms are different.She has dense breasts and would like a breast sonogram for screening.She has had worsening migraine headaches for the past few years, her PCP recently called her in Sumatriptan. she is taking a combination OCP.Her menses have bene coming in week 3 of her cycle and lasting a week then she goes into her next pill pack and again gets menses week 3. Shani Farley MD [address], [place], [phone], [place] - [facility], 10/12/2024 15:38:05 11/14/2024 text/html She is here because on 10/19/24 she noted the onset of discomfort in her RLQ, like the cyst I had before, she had twinges of pain when she coughed or sneezed. The pain radiated to her low back. IT resolved 3 days ago nad is gone now but she is concerned because it was unusual. She would like a pelvic sonogram as the prior cyst showed up on sonogram. Note from 10/12/24: She is here for annual. She was switched to progestin pill last year due to her migraines.Since switching she notes her headaches are less frequent and less intense, she believes the switch made a good improvement.She was told by radiology that her breasts are dense and they recommend a mammogram once a year, and an ultrasound every year, offset by 6 months so she gets one test every 6 months.She had a right ovarian cyst last year but it shrank on repeat sono, and no further testing was necessary. Shani Farley MD [address], [place], [phone], [facility], 11/14/2024 15:39:49 05/03/2025 text/html She is here for a two day history of worsening dysuria, frequency, urgency and vulvar pruritus. The pelvic sono in 12/05 was normal. Shani Farley MD [address], [place], [phone], [facility], 05/03/2025 13:33:54 07/05/2025 text/html She is here for a complaint of intermittent bloating, pelvic pain, which are relatively recent, and a history of 2 years of intermittent post coital spotting. She notes that she was switched to a generic med for her gi issues and after this the bloating issues and pain began. She talked to her gi doctor in [place] but was advised to see coloring room worker first as she could have a coloring room worker issue. She had a pelvic sonogram in 11/2024 that was normal, an the endometrial thickness was 1 mm. She has a famil history of ovarian cancer, but her mother is BRCA negative. Shani Farley MD [address], [place], [phone], [facility] in [facility], 07/05/2025 15:21:03 OBGyn Episode No OBEpisode recorded.
== END 2025-08-01 15:44 | disposition home or self-care (01) ==
LOC: HO.HMGAL 15:44
PROVIDERS: PCP Nurse Practitioner Family; Visit Provider Registered Nurse Emergency
DX: J30.89 Other allergic rhinitis (principal)
CPT/HCPCS: 95117; 95165

== ENCOUNTER 2025-08-22 15:42 | Outpatient (AMB) | payer BC, SELFPAY ==
--- OUTSIDE RECORDS SUMMARY | 2025-08-22 18:44 | XMS_ITS | Data Portability ---
Author Organization [place] - [facility],, SHANI FARLEY MD Address [address] [address] Care Team Providers Care Physical Trainer Name Role Phone ALESSANDROERICA CORREA Primary Care Provider [phone] Assessment No assessment recorded. Plan of Treatment Reminders Order Date Submit Date Provider Last Modified By Organization Details Last Modified Time Details Appointments None recorded. Lab biopsy, endometria l 2024 025 Buru Buru [facility] (Centralized Electronic Ordering - All Locations), Patient Can Go To The Location Of Their Choice, [id number] 5 08:12:11 test, urine 2024 025 [email or web address] 1 In-Office Order, Internal Use Only DO Not Attach Compendium DO Not Attach Compendium, Do Not Delete/merge, [id number] 5 09:55:57 urinalysis , dipstick 2024 025 [email or web address] 1 In-Office Order, Internal Use Only DO Not Attach Compendium DO Not Attach Compendium, Do Not Delete/merge, [id number] 5 15:01:26 culture, urine 2024 025 Buru Buru [facility], [address] [facility], [place], [address], 5 10:05:51 wet mount, vaginal 2024 025 [email or web address] 1 In-Office Order, Internal Use Only DO Not Attach Compendium DO Not Attach Compendium, Do Not Delete/merge, [id number] 5 15:01:26 test, urine 2024 025 [email or web address] 1 In-Office Order, Internal Use Only DO Not Attach Compendium DO Not Attach Compendium, Do Not Delete/merge, [id number] 5 15:01:26 urinalysis , dipstick 2024 025 [email or web address] 1 In-Office Order, Internal Use Only DO Not Attach Compendium DO Not Attach Compendium, Do Not Delete/merge, [id number] 5 13:23:35 culture, urine 2024 025 CHINYERE [facility], [address] [facility], [place], [address], 5 10:05:43 test, urine 2024 025 [email or web address] 1 In-Office Order, Internal Use Only DO Not Attach Compendium DO Not Attach Compendium, Do Not Delete/merge, [id number] 5 13:23:34 wet mount, vaginal 2024 025 [email or web address] 1 In-Office Order, Internal Use Only DO Not Attach Compendium DO Not Attach Compendium, Do Not Delete/merge, [id number] 13:23:34 test, urine 2024 025 [email or web address] 1 In-Office Order, Internal Use Only DO Not Attach Compendium DO Not Attach Compendium, Do Not Delete/merge, [id number] 5 15:35:05 cytology report, thin prep, smear or scraping, cervical or vaginal 2024 025 CHINYERE [facility] (Centralized Electronic Ordering - All Locations), Patient Can Go To The Location Of Their Choice, [id number] 5 10:18:33 Referral None recorded. Procedures biopsy, endometriu m (PROC) 2024 025 CHINYERE In-Office Order, Internal Use Only DO Not Attach Compendium DO Not Attach Compendium, Do Not Delete/merge, [id number] 5 10:25:19 Surgeries None recorded. Imaging US, pelvis, transabdom inal + transvagin al - postmenopa usal bleeding 2024 025 [facility] Orders, [address], [place], [address], 5 07:32:47 US, breast, bilateral, complete 2024 025 [facility] Orders, [address], [address], [place], [address], 5 11:40:38 US, pelvis, transabdom inal + transvagin al - RLQ pain similar to prior ovarian cyst, for 3 weeks, negative test 2024 025 [facility] Orders, [address], [address], [place], [address], 5 09:54:25 US, breast, bilateral, complete 2024 025 [facility] Orders, [address], [address], [place], [address], 5 15:39:12 MAMMO, screening, digital, bilateral - Breast Aspiration and/or Biopsy if needed 2024 025 [facility] Orders, [address], [address], [place], [address], 5 15:12:11 Medication Orders fluconazol e 150 mg tablet 2024 025 [facility]/Pharmacy #[id number], [address] [place] [address], [address], 5 05:01:54 nitrofuran toin monohydrat e/macrocry stals 100 mg capsule 2024 025 [facility]/Pharmacy #[id number], [address] [place] [address], [address], 05:01:02 fluconazol e 150 mg tablet 2024 025 [facility]/Pharmacy #[id number], [address] [place], [address], 05:01:54 Radha 0.35 mg tablet 2024 025 [facility]/Pharmacy #[id number], [address] [place], [address], 15:36:16 Patient TargetsNo targets recorded. Patient Instructions Encounter Date Encounter Id Patient Instructions Last Modified By Organization Details Last Modified Time 10/12/2024 [id number] learning about healthy weight Not available 10/12/2024 [...] pack and again gets menses week 3. ____ She appears to be doing well. Ordered [...] to pharmacy. Not available 10/12/2024 15:37:48 11/14/2024 [id number] She is here because on 10/19/24 she [...] sono, and no further testing was necessary. ____ Ther is no mass on exam but [...] 25 minutes Not available 11/14/2024 15:39:31 05/03/2025 [id number] urinary tract infection in women information Not [...] questions answered. Not available 05/03/2025 13:33:23 07/05/2025 [id number] urinary tract infection in women information Not [...] She talked to her gi doctor in [place] but was advised to see obgyn nurse first as she could have a obgyn nurse issue. She had a pelvic sonogram in [...] care: 25 minutes Not available 07/05/2025 15:14:27 08/14/2025 [id number] abnormal uterine bleeding: care instructions Not available 08/14/2025 09:55:57 endometrial biopsy: about this test Not available 08/14/2025 09:55:57 She is here for abnormal bleeding and a complex fluid collection in the endocervical canal on sono. Note from 07/05/25: She is here for a complaint of intermittent bloating, pelvic pain, which are relatively recent, and a history of 2 years of intermittent post coital spotting. She notes that she was switched to a generic med for her gi issues and after this the bloating issues and pain began. She talked to her gi doctor in [place] but was advised to see obgyn nurse first as she could have a obgyn nurse issue. She had a pelvic sonogram in 11/2024 that was normal, an the endometrial thickness was 1 mm. She has a famil history of ovarian cancer, but her mother is BRCA negative. Urine hcg is negative. Urine dip has blood and WBC but could be from vaginal yeast, check urine culture. Has symptomatic monilia vaginitis, rx diflucan. Abdominal pain, check pelvic sonogram. There was an abundant plug of cervi cla mucous, that is likely what was visualized on sono. Also, there may have been a small endometrial polyp removed, await path. She tolerated well. Not available 08/14/2025 09:57:19 Reason for Referral None Reported. Results Created Date Observation Date Name Description Value Unit Range Abnormal Flag Note LastModifiedBy Organization Detail LastModifiedTime 10/12/1910/19/2024 IGP, RFX APTIM A HPV ASCU diagnosis: Commen t NEGAT HERMINIA FOR INTRA EPITH ELIAL LESIO N OR KARLY FAYE . THIS SPECI MEN WAS RESCR EENED PART OF OUR QUALI TY CONTR OL PROGR AM. Not Available [facility] ([facility]) [address], [place], [address], 10/19/2024 10:18:33 10/12/19 25 10/19/2024 IGP, RFX APTIM A HPV ASCU specimen adequacy: Jose Antonio newton Satis facto ry for evalu ation . Not Available [facility] ([facility]) [address] [facility], [place], [address], 10/19/2024 10:18:33 10/12/19 25 10/19/2024 IGP, RFX APTIM A HPV ASCU clinician provided ICD10: Jose Antonio newton Z01.4 19 Not Available [facility] ([facility]) [address] [place], [address], 10/19/2024 10:18:33 10/12/19 25 10/19/2024 IGP, RFX APTIM A HPV ASCU performed by: Jose Antonio Dunham, Cytot echno logis t (ASCP ) Not Available [facility] ([facility]) [address] [place], [address], 10/19/2024 10:18:33 10/12/19 25 10/19/2024 IGP, RFX APTIM A HPV ASCU QC reviewed by: Jose Antonio slater, Cytot echno logis t (ASCP ) Not Available [facility] ([facility]) [address] [place], [address], 10/19/2024 10:18:33 10/12/19 25 10/19/2024 IGP, RFX APTIM A HPV ASCU . . Not Available [facility] ([facility]) [address] [place], [address], 10/19/2024 10:18:33 10/12/19 25 10/19/2024 IGP, RFX APTIM A HPV ASCU note: Jose Antonio newton The Pap smear is a scree giorgio test mer adkins to aid in the detec tion of chad ligna nt and malig nant condi tions of the uteri ne cervi x. It is not a diagn ostic proce dure and shoul d not be used as the sole means of detec ting cervi yamilet cance r. Both false -posi tive and false -nega tive repor ts do occur . Not Available [facility] ([facility]) [address] [place], [address], 10/19/2024 10:18:33 10/12/19 25 10/19/2024 IGP, RFX APTIM A HPV ASCU test methodology: TNP The Thin Prep( R) Image r was unabl e to read this speci men. There fore a manua l revie w was perfo rmed. Not Available [facility] ([facility]) [address] [facility], [place], [address], 10/19/2024 10:18:33 10/12/19 25 10/19/2024 IGP, RFX APTIM A HPV ASCU . Commen t The HPV DNA refle x crite raysa were not met with this speci men resul t there fore, no HPV testi ng was perfo rmed. Not Available [facility] ([facility]) [address] [facility], [place], [address], 10/19/2024 10:18:33 11/14/19 25 11/14/2024 pregn nigel test, urine HCG negati ve Not Available In-Office Order Internal Use Only DO Not Attach Compendium DO Not Attach Compendium, Do Not Delete/merge, [id number] 11/14/2024 14:52:43 05/03/20 25 05/05/2025 URINE CULTU RE, ROUTI NE urine culture, routine Final report abnormal Not Available [facility] ([facility]) [address] [place], [address], 05/05/2025 14:05:49 05/03/20 25 05/05/2025 URINE CULTU [...] p A). (CLSI ) Not Available [facility] ([facility]) [address] [facility], [place], [address], 05/05/2025 14:05:49 05/03/2005/03/2025 wet mount , vagin [...] Attach Compendium, Do Not Delete/merge, 05/03/2025 13:22:30 05/03/2005/0305/03/2025 pregn nigel test, urine HCG negati ve Not Available In-Office Order Internal Use Only DO Not Attach Compendium DO Not Attach Compendium, Do Not Delete/merge, 05/03/2025 13:17:25 05/03/20 25 05/03/2025 urina lysis , dipst ick GLU Negati ve Not Available In-Office Order Internal Use Only DO Not Attach Compendium DO Not Attach Compendium, Do Not Delete/merge, 05/03/2025 13:16:37 05/03/20 25 05/03/2025 urina lysis , dipst ick HIGINIO Negati ve Not Available In-Office Order Internal Use Only DO Not Attach Compendium DO Not Attach Compendium, Do Not Delete/merge, 05/03/2025 13:16:37 05/03/20 25 05/03/2025 urina lysis , dipst ick KET Negati ve Not Available In-Office Order Internal Use Only DO Not Attach Compendium DO Not Attach Compendium, Do Not Delete/merge, [facility] 05/03/2025 13:16:37 05/03/20 25 05/03/2025 urina lysis , dipst ick SG 1.010 Not Available In-Office Order Internal Use Only DO Not Attach Compendium DO Not Attach Compendium, Do Not Delete/merge, [facility] 05/03/2025 13:16:37 05/03/20 25 05/03/2025 urina lysis , dipst ick BLO Large Not Available In-Office Order Internal Use Only DO Not Attach Compendium DO Not Attach Compendium, Do Not Delete/merge, [id number] 05/03/2025 13:16:37 05/03/20 25 05/03/2025 urina lysis , dipst ick pH 6.5 Not Available In-Office Order Internal Use Only DO Not Attach Compendium DO Not Attach Compendium, Do Not Delete/merge, [id number] 05/03/2025 13:16:37 05/03/20 25 05/03/2025 urina lysis [...] 13:16:37 05/03/2005/03/2025 urina lysis , dipst ick FREDERICK Large Not Available In-Office Order Internal Use Only DO Not Attach Compendium DO Not Attach Compendium, Do Not Delete/merge, 05/03/2025 13:16:37 05/25/20 25 05/26/2025 URINE CULTU REMARGARET urine culture, routine Final report abnormal Not Available [facility] ([facility]) [address] [facility], [place], [address], 05/26/2025 18:05:38 05/25/2005/26/2025 URINE CULTU REMARGARET result 1 COMMEN T abnormal Beta hemol [...] tions need not be perfo rmed margaret sorenson becau se nonsu scept ible isola chi are extre ariadna rare in any beta- hemol ytic strep tococ cus and have not been repor maxwell for Strep tococ cus pyoge nathan (grou p A). (CLSI ) Not Available [facility] ([facility]) [address], [place], [address], 05/26/2025 18:05:38 07/05/2007/07/2025 URINE CULTU RE, ROUTI NE urine culture, routine Final report Not Available [facility] ([facility]) [address] [facility], [place], [address], 07/07/2025 10:05:51 07/05/2007/07/2025 URINE CULTU RE, ROUTI NE result 1 No growth Not Available [facility] ([facility]) [address] [facility], [place], [address], 07/07/2025 10:05:51 07/05/2007/05/2025 wet mount , vagin [...] 14:55:04 07/05/2007/05/2025 urina lysis , dipst ick PRO Negati ve Not Available In-Office Order Internal Use Only DO Not Attach Compendium DO Not Attach Compendium, Do Not Delete/merge, 07/05/2025 14:55:04 07/05/2007/05/2025 urina lysis , dipst ick URO 0.2 [...] Attach Compendium, Do Not Delete/merge, 07/05/2025 14:55:04 08/14/2008/14/2025 [facility] [place] [facility] YAMILET PATHO LOGY results Patie nt Name: MYCHAL BSUCH [facility] Acces navya #: [id number] Patie nt : [id number] (Age: 45) Colle ction Date: 2024 Acces navya Date: 2024 Sign Out Date: 2024 Tissu e Sourc e: 1:END OMETR IAL BIOPS Y Final Diagn osis: Endom etria l biops y: - Fragm ents of benig n lower uteri ne segme nt and endoc ervic al mucos a. Prima ry Patho logis t:Don mtz MD elect martha jarquin salomon d out by: Jamey mtz MD / [facility] Clini yamilet Histo ry: 45-ye ar-ol d femal e, dysfu nctio nal uteri ne bleed ing Gross Descr iptio n: Label ed endo metri al biops y . Recei elizbaeth in forma kiarra is a 2.0 x 2.0 x 0.6 [address] of hemor rhagi c soft tissu e blood clot and mucus . The forma kiarra is filte red and the speci men is submi tted in toto in 1 casse tte, multi ple piece s, x 2. (KD)* As of December 18, 2023, the speci men proce ssing and stain ing is perfo rmed at [facility] , [address], [place] (CLIA #[id number]). Its perfo rmanc e wali cteri stics deter mined by [facility] rp. Elías Randolph M.D. Medic al Direc tor of Surgi yamilet Timothy Silveira M.D. Medic al Direc tor Cytop athol ogy Phone #: [phone], On-Ca ll Patho logis t: [id number] Not Available [facility] (Centralized Electronic Ordering - All Locations) Patient Can Go To The Location Of Their Choice, [id number] 08/16/2025 16:05:06 08/14/2008/14/2025 pregn nigel test, urine HCG negati ve Not Available In-Office Order Internal Use Only DO Not Attach Compendium DO Not Attach Compendium, Do Not Delete/merge, [id number] 08/14/2025 09:10:17 11/25/19 25 11/24/2024 US, pelvi s, trans abdom inal + trans vagin al No observ ation record ed. [facility] (Imaging) [address] [place], [address], 11/27/2024 16:54:58 05/10/20 25 05/10/2025 US, breas t, bilat eral, compl ete No observ ation record ed. [email or web address] [facility] [address] [facility] [address], [place], [address], 05/11/2025 07:39:26 07/10/20 25 07/09/2025 US, pelvi s, trans abdom inal + trans vagin al No observ ation record ed. [email or web address] [address] [place], [address], 07/30/2025 15:23:14 08/14/20 25 08/13/2025 MAMMO , scree giorgio, digit al, bilat eral No observ ation record ed. [facility] [address], [place], [address], 08/14/2025 15:37:15 Result Notes None recorded. Problems Name Problem SNOMED Code Status Onset Date Resolution Date Notes Provider Name and Address Organization Details Recorded Time Ulcerative colitis 47540746 Active 2017 ARGELIA Villar in [facility], 8 15:04:17 Celiac disease 896555613 Active 2017 ARGELIA Villar in [facility], 8 15:12:57 Endometrios is of uterus 56063096 Active 2017 Shani Farley MD [address], [place], [address], [place] [facility], 8 16:01:35 Dyspareunia 31846793 Active 2017 Shani Farley MD [address], [place], [address], [place] [facility], 8 16:01:44 Premenstrua l dysphoric disorder 638885 Active 2018 improved with the OCP Shani Farley MD [address], [place], [address], [place] [facility], 9 15:48:40 Family history of malignant neoplasm of ovary 570741780 Active 2023 Shani Farley MD [address], [place], [address], [place] [facility], 4 11:46:26 Family history of malignant neoplasm of breast in first degree relative 006588317 Active 2023 Shani Farley MD [address], [place], [address], [place] [facility], 4 11:46:40 Extremely dense breast composition 052811087 Active 2024 Shani Farley MD [address], [place], [address], [place] [facility], 5 15:35:54 Problem Notes None recorded. Procedures Surgical History Date Name Laterality Status Provider Name and Address Organization Details Recorded Time 5 Endometrial Biopsy completed Shani Farley MD [address], [place], [address], [place] [facility], 08/14/2025 09:59:29 4 Most Recent Mammogram completed Kassy Newman in [facility], 08/14/2025 09:07:47 2 Colposcopy completed Shani Farley MD [address], [place], [address], [place] [facility], 05/11/2022 10:35:45 2 Colposcopy completed Shani Farley MD [address], [place], [address], [place] [facility], 01/22/2022 14:57:37 9 Hernia repair w/mesh completed Shani Farley MD [address], [place], [address], [place] [facility], 03/13/2020 10:18:36 5 Caesarean Section completed Letitia Newman in [facility], 02/10/2018 15:18:48 Other completed Letitia Newman in [facility], 02/10/2018 15:20:47 Imaging Results None recorded. Procedure Notes None recorded. Medical Equipment None Reported. Allergies Allergen ID Allergen Name Allergen Category Reaction Reaction Severity Criticality Documentation Date Start Date Code Code System Note Provider Name and Address Organization Details Recorded Time Augmentin medicatio n rash Not available Not available 02/10/2018 92887 2 RxNorm ARGELIA Villar in [facility], 8 15:06:01 clindamyc in Not available rash Not available Not available 02/10/2018 2582 RxNorm Letitia Winters ARGELIA lomax [facility], 8 15:06:20 [address]2781 Remicade medicatio n anaphylax is severe high 08/20/2022 08219 0 RxNorm Tigist Goss ARGELIA lomax in [facility], 2 15:15:47 Medications Name Sig Start Date [...] 1 TABLET BY MOUTH ONCE A DAY. MAY REPEAT DOSE IN 2 [...] DAY FOR 7 DAYS NEEDED FOR COUGH 05/30 completed Not Available Not Available Not [...] Available Not Available Not Available Flucelvax Quad 8026-2342 (PF) 60 mcg (15 mcg x 4)/0.5 [...] Last Updated DateTime 149.86 cm 25.7 kg/m2 66641.2 3 g 97.4 [degF] 69 /min 128/80 mm[Hg] Kassy Newman in [facility], 15:14:48 Date Recorded Body height Body mass index (BMI) Body weight Heart rate Systolic And Diastolic Provider Name and Address Organization Details Last Updated DateTime 11/14/2024 149.86 cm 26.3 kg/m2 80469.01 g 62 /min 131/74 mm[Hg] Kassy Newman in [facility], 11/14/2024 14:52:12 Date Recorded Body height Body mass index (BMI) Body weight Heart rate Systolic And Diastolic Provider Name and Address Organization Details Last Updated DateTime 05/03/2025 149.86 cm 26.9 kg/m2 77066.79 g 79 /min 118/74 mm[Hg] Kassy Newman in [facility], 05/03/2025 13:04:37 Date Recorded Body height Body mass index (BMI) Body weight Heart rate Systolic And Diastolic Provider Name and Address Organization Details Last Updated DateTime 07/05/2025 149.86 cm 27.8 kg/m2 30573.59 g 69 /min 146/84 mm[Hg] Kassy Newman in [facility], 07/05/2025 14:43:15 Date Recorded Body height Body mass index (BMI) Body weight Heart rate Systolic And Diastolic Provider Name and Address Organization Details Last Updated DateTime 08/14/2025 149.86 cm 27.8 kg/m2 10460.31 g 87 /min 129/67 mm[Hg] Kassy Obinna [place] [facility], 08/14/2025 09:06:01 Social History Question Answer Notes LastModified by Organizat ion Details LastModified Time Tobacco Smoking Status Never Smoker Not Available [facility] 08/13/2020 03:19:43 How Many Years [...] Type Of Diet Are You Following? GLUTENFREE [id number] Information not available 08/13/2020 Which Illicit Or Recreational Drugs Have You Used? None [id number] Information not available 08/13/2020 Do You Reside In Or Have You Traveled To An Area Where Ebola Virus Transmission Is Active? No [id number] Information not available 08/13/2020 Education Post Graduate Information not available 02/10/2018 What Is The Highest Grade Or Level Of School You Have Completed Or The Highest Degree You Have Received? [id number] Information not available 08/19/2021 Who Is Your Employer? [employer] Information not available [...] Date Of Your Most Recent Tobacco Screening? 08/14/2025 Information not available 08/14/2025 What Is Your Relationship Status? Information not available 08/19/2021 Are You Sexually Active? Yes [id number] Information not available 08/13/2020 How Much Tobacco Do You Smoke? No [id number] Information not available 08/13/2020 General Stress Level Medium Information not available 02/16/2019 How Many Years Have You Smoked Tobacco? 0 [id number] Information not available 08/13/2020 Have You Recently (within The Last 12 Weeks, Or During A Current ) Traveled To Or Lived In A Zika-affected Area? No stacey Information not available 02/10/2018 How Many Days [...] is your level of alcohol consumption? Occasional [id number] Information not available 08/13/2020 Do you or have you ever used smokeless tobacco? Never used smokeless tobacco [id number] Information not available 08/13/2020 Are you currently employed? Yes Information not available 08/19/2021 What is your occupation? teacher Information not available 05/11/2022 Do you or have you ever used e-cigarettes or vape? Never used electronic cigarettes [id number] Information not available 08/13/2020 What is your exercise level? Heavy Information not available 09/09/2023 Mental Status Question Answer Note LastModified by Organization D etails LastModified Time Do you feel stressed (tense, restless, nervous, or anxious, or unable to sleep at night)? [id number] Information not available 08/19/2021 Family History Relationship Description Onset Age of this Age Resolved Age Notes LastModified by Organization Details LastModified Time Mother History of endometriosi s stacey Not available 2017 15:13:45 Father Hypercholest jamal ibarra Not available 2017 15:14:52 Maternal Aunt [...] for MyRisk panel N Autoimmune Condition Y Lung Disease N Depression Y Defects or Inherited Disease N History of Ovarian Cancer N BRCA testing in past N Anxiety Disorder N Arthritis N Infertility N History of Cancer N Endometriosis N Thyroid Problems N Kidney or Bladder Problems N GI Problems Y Anemia N History of Breast Cancer N JULIET exposure N Osteopenia N Psychiatric Illness N Diabetes N Headaches or Migraines Y Asthma N Hepatitis N Heart Disease Y Hypertension N Osteoporosis N Gynecological History Statement/Question Response Flow Moderate Date of LMP 08/13/2025 Frequency of Cycle (Q days) 14 Menses Monthly Y Duration of Flow (days) 5 Age at Menarche 12 Current Control Method BCPs Most Recent Mammogram 08/13/2024 Age at First Child 37 Obstetrics History GPAL:G 1 P 1 0 0 1 Type Value Full Term 1 Living 1 Total 1 Immunizations Vaccine Type Date Status Note Provider Eitan gorman and Address Organization Details Recorded Time influenza, unspecified formulation 7 completed Letitia lomax [place] - [facility], 02/10/2018 15:12:39 influenza, unspecified formulation 8 completed Not Available [facility] 10/25/2023 10:22:28 Influenza, split virus, quadrivalent, preservative 9 completed Not Available [facility] 10/25/2023 10:22:28 Influenza, split virus, quadrivalent, preservative 0 completed Kassy Yeboah null, [place] - [facility], 08/15/2020 15:19:04 Influenza, split virus, quadrivalent, preservative 1 completed Not Available [facility] 10/25/2023 10:22:28 COVID-19, mRNA, LNP-S, PF, 100 mcg/0.5mL dose or 50 mcg/0.25mL dose 1 completed Not Available [facility] 10/25/2023 10:22:28 Influenza, MDCK, quadrivalent, PF 8 completed Tigist lomax, [place] - [facility], 09/09/2023 15:23:37 Influenza, MDCK, quadrivalent, PF 1 completed Tigist lomax, [place] - [facility], 09/09/2023 15:23:37 COVID-19, mRNA, LNP-S, PF, 100 mcg/0.5mL dose or 50 mcg/0.25mL dose 1 completed Tigist lomax, [place] - [facility], 09/09/2023 15:23:37 COVID-19, mRNA, LNP-S, PF, 100 mcg/0.5mL dose or 50 mcg/0.25mL dose 1 completed Tigist lomax, [place] - [facility], 09/09/2023 15:23:37 COVID-19, mRNA, LNP-S, PF, 100 mcg/0.5mL dose or 50 mcg/0.25mL dose 1 completed Tigist Goss null, [place] - [facility], 09/09/2023 15:23:37 influenza, unspecified formulation 1 completed Tigist Goss null, [place] - [facility], 09/09/2023 15:23:38 Influenza, split virus, quadrivalent, PF 9 completed Tigist lomax MA - [facility], 09/09/2023 15:23:38 Influenza, split virus, quadrivalent, PF 2 completed Tigist lomax MA - [facility], 09/09/2023 15:23:38 Influenza, MDCK, quadrivalent, PF 3 completed Kassy Nguyenmeng lomax MA - [facility], 10/22/2023 11:03:29 Tdap 4 completed Not Available [facility] 08/14/2025 08:59:35 Influenza, split virus, trivalent, PF 4 completed Not Available [facility] 08/14/2025 08:59:35 Past Encounters Encounter ID Performer Location Encounter Start Date Encounter Closed Date Diagnosis/Indication Diagnosis SNOMED-CT Code Diagnosis ICD10 Code Diagnosis IMO Codes Diagnosis Note [id number] MD SHANI Dyson MD [address] [place] [address] 02/10/2018 14:49:54 02/10/2018 16:06:25 Dysmenorrhea 563257152 N94.6 Endometrio sis of uterus 07910376 N80.0 Dyspareunia 12120538 N94 .10 [id number] MD SHANI Dyson MD [address] [place] [address] 07/25/2018 14:22:13 07/25/2018 15:57:23 Specialized medical examination 54450750 Z01.419 Venereal d isease screening 343635425 Z11.3 [id number] MD SHANI Dyson MD [address] [place] [address] 08/08/2018 15:40:06 08/09/2018 15:56:03 Candidal vulvovaginitis 06611365 B37.3 [id number] MD SHANI Dyson MD [address] [place] [address],[place] [address] 02/16/2019 15:11:35 02/17/2019 13:17:56 Pain in pelvis 32449667 R10.2 Premenstru al dysphoric disorder 779955 F32.81 Dyspareunia 75864339 N94 .10 Celiac disease 494219082 K90.0 Ulcerative colitis 30441 004 K51.80 [id number] MD SHANI Dyson MD [address] [place] [address] [place] [address] 06/28/2019 10:26:20 06/28/2019 12:00:11 Dysmenorrhea 093500628 N94.4 Screening mammography 24 924020 Z12.31 Night sweats 84832977 R6 1 [id number] MD SHANI Dyson MD [address] [place] [address] [place] [address] 07/25/2019 10:10:34 07/25/2019 11:22:45 Specialized medical examination 06517856 Z01.419 Screening mammography 24 802771 Z12.31 [id number] MD SHANI Dyson MD [address] [place], [place] [address] [place] [address] 03/13/2020 09:10:38 03/13/2020 10:56:34 Amenorrhea 41231863 N91.2 Fatigue 07700435 R53.83 [id number] MD SHANI Dyson MD [address] [place] [address] [place] [address] 08/15/2020 15:11:57 08/15/2020 16:02:53 Specialized medical examination 20787294 Z01.419 Screening mammography 24 601947 Z12.31 [id number] MD SHANI Dyson MD [address] [place] [address] [place] [address] 08/19/2021 14:43:30 08/19/2021 15:35:59 Specialized medical examination 81064264 Z01.419 Screening mammography 24 263641 Z12.31 Endometrio sis of uterus 23738856 N80.0 Dyspareunia 37870674 N94 .10 [id number] MD SHANI Dyson MD [address] [place] [address] [place] [address] 12/09/2021 15:12:56 12/09/2021 16:08:45 Atypical squamous cells of undetermined significance on cervical Papanicolaou smear 833214040 R87.610 Ulcerative colitis 87076 004 K51.80 Surveillan ce of oral contraception 391070038 Z30.41 [id number] MD SHANI Dyson MD [address] [place] [address] [place] [address] 01/22/2022 14:35:30 09/18/2022 09:57:44 Cytologic finding 809930669 R87.612 Low grade squamous intraepithelial lesion on cervical Papanicolaou smear 6417132198 9105 R87.612 [id number] MD SHANI Dyson MD [address] [place] [address] [place] [address] 05/11/2022 09:57:52 05/11/2022 10:52:05 Low grade squamous intraepithelial lesion on cervical Papanicolaou smear 1702290159 9105 R87.612 Cytologic finding 277323 006 R87.612 [id number] MD SHANI Dyson MD [address] [place] [address] [place] [address] 08/20/2022 15:12:25 08/20/2022 15:56:44 Specialized medical examination 23594371 Z01.419 Screening mammography 24 148629 Z12.31 Extremely dense breast composition 246855489 R92.2 [id number] MD SHANI Dyson MD [address] [place] [address] [place] [address] 09/09/2023 15:19:22 09/09/2023 16:01:09 Specialized medical examination 88607325 Z01.419 Screening for malignant neoplasm of rectum 694775074 Z12.12 Screening mammography 24 807583 Z12.31 Extremely dense breast composition 637753383 R92.2 Pain in pelvis 45115932 R10.2 [id number] MD SHANI Dyson MD [address] [place], [place] [address] [address] 10/22/2023 10:55:50 10/22/2023 14:22:52 Complex cyst of right ovary 5836316855 6020155 N83.291 Abdominal bloating 15398 9008 R14.0 [id number] MD SHANI Dyson MD [address] [place], [place] [address] [address] 10/25/2023 10:21:47 10/25/2023 14:11:45 Complex cyst of right ovary 5669761849 3354082 N83.291 Amenorrhea 59423455 N91. 2 Family his tory of malignant neoplasm of breast in first degree relative 648245130 Z80.3 Family his tory of malignant neoplasm of ovary 685321352 Z80.41 [id number] MD SHANI Dyson MD [address] [place], [place] [address] [address] 05/30/2024 10:43:10 05/30/2024 15:05:27 Menopausal syndrome 051556394 N95.9 Surveillan ce of oral contraception 733221958 Z30.41 Headache 26640214 R51.9 Premature ovarian failure 997208460 E28.39 [id number] MD SHANI Dyson MD [address] [place], [place] [address] [address] 10/12/2024 15:09:46 10/16/2024 15:57:17 Specialized medical examination 37263272 Z01.419 Screening for malignant neoplasm of rectum 438716963 Z12.12 Screening mammography 24 724047 Z12.31 Extremely dense breast composition 807151072 R92.2 [id number] MD SHANI Dyson MD [address] [place] [address] [place] [address] 11/14/2024 14:45:42 11/14/2024 15:59:14 Pain in pelvis 79953615 R10.2 Extremely dense breast composition 500244147 R92.2 [id number] MD SHANI Dyson MD [address] [place] [address],[address] [place] [address] 05/03/2025 12:59:16 05/03/2025 13:46:18 Acute lower urinary tract infection 120624301 R30.0 Candidal vulvovaginitis 35002441 B37.31 [id number] MD SHANI Dyson MD [address] [place] [address], [address] [place] [address] 07/05/2025 14:38:50 07/05/2025 15:28:48 Acute lower urinary tract infection 349353168 R30.0 Candidal vulvovaginitis 96949248 B37.31 Pain in pelvis 65248143 R10.2 [id number] Postcoital bleeding 4888 0000 N93.0 [id number] Family his tory of malignant neoplasm of ovary 379084375 Z80.41 [id number] MD SHANI Dyson MD [address] [place] [address], [place] [address] 08/14/2025 08:57:40 08/14/2025 15:48:04 Oligoovulatory dysfunctional uterine bleeding 559089787 N93.8 Health Concerns Section Related Observation LastModified by Organization Detai ls LastModified Time None Recorded Concern Status LastModified by Organization Details LastModified Time None Recorded Advance Directives Directive None Recorded Payers Insurance Date Sequence Insurance Name Policy Number Policy Koch Covered Member ID Koch Member ID Guarantor Name 10/22/2023 1 [place] [facility] ([place]) [id number] Mychal Samaniego [id number] Mychal Samaniego 08/11/2025 1 [place] [id number] Cj Luis [id number] Mychal Samaniego Notes Date Note Type Note Provider Name and Address Organization Details Recorded Time 10/12/2024 text/html She is here for annual. [...] Shani Farley MD [address], [place], [address], [employer] [facility], 10/12/2024 15:38:05 11/14/2024 text/html She is here [...] Shani Farley MD [address], [place], [address], [employer] [facility], 11/14/2024 15:39:49 05/03/2025 text/html She is here for a two day history of worsening dysuria, frequency, urgency and vulvar pruritus. The pelvic sono in 12/05 was normal. Shani Farley MD [address] [facility],[address], [place], [address], [facility], 05/03/2025 13:33:54 07/05/2025 text/html She is here for a complaint of intermittent bloating, pelvic pain, which are relatively recent, and a history of 2 years of intermittent post coital spotting. She notes that she was switched to a generic med for her gi issues and after this the bloating issues and pain began. She talked to her gi doctor in [place] but was advised to see obgyn nurse first as she could have a obgyn nurse issue. She had a pelvic sonogram in 11/2024 that was normal, an the endometrial thickness was 1 mm. She has a famil history of ovarian cancer, but her mother is BRCA negative. Shani Farley MD [address] [facility],[address], [place], [address], [facility] - [facility], 07/05/2025 15:21:03 08/14/2025 text/html She is here for abnormal bleeding and a complex fluid collection in the endocervical canal on sono. _ Note from 07/05/25: She is here for a complaint of intermittent bloating, pelvic pain, which are relatively recent, and a history of 2 years of intermittent post coital spotting. She notes that she was switched to a generic med for her gi issues and after this the bloating issues and pain began. She talked to her gi doctor in [place] but was advised to see obgyn nurse first as she could have a obgyn nurse issue.She had a pelvic sonogram in 11/2024 that was normal, an the endometrial thickness was 1 mm.She has a famil history of ovarian cancer, but her mother is BRCA negative.Urine hcg is negative.Urine dip has blood and WBC but could be from vaginal yeast, check urine culture.Has symptomatic monilia vaginitis, rx diflucan.Abdominal pain, check pelvic sonogram. Shani Farley MD [address] [facility],[address], [place], [address], [place] - [facility], 08/14/2025 09:59:47 OBGyn Episode No OBEpisode recorded.
== END 2025-08-22 15:42 | disposition home or self-care (01) ==
LOC: HO.HMGAL 15:42
PROVIDERS: PCP Nurse Practitioner Family; Visit Provider Registered Nurse Emergency
DX: J30.89 Other allergic rhinitis (principal)
CPT/HCPCS: 95117; 95165